=== PATIENT | female | born 1965 | race Caucasian/White ===

== ENCOUNTER → 2016-06-08 | Outpatient (CLI) | payer BC ==
[2015-06-26 13:50] VITALS: BP 111/72; PULSE 92
[~2016-06-08] MED LIST: MULT-506 PO
[2016-06-08 13:14] VITALS: BP 107/70; PULSE 76; TEMP 36.7; O2SAT 97
--- NOTE | 2016-06-08 14:29 | Radiation Oncology Follow-Up ---
Radiation Oncology Follow-Up Date of Visit Jun 08, 2016. Reason For Visit Annual follow-up Radiation Completion Date 11/15/13 Diagnosis (1) Cervical carcinoma Status: Resolved Onset Date: 07/10/2013 Stage: lll (B) Permanent Comment: Abnormal Pap smear 05/21/2013 Status post colposcopy and endometrial biopsy as well as cervical biopsies 07/10 revealing squamous cell carcinoma of the endocervix Status post robotic-assisted total laparoscopic radical hysterectomy with upper vaginectomy, bilateral stopping oophorectomy and bilateral optic lymph node dissection 08/24/2013 staged pT2a pNI M0 Status post completion of radiation therapy combined with chemotherapy Radiation completed 11/15/2013 received 6240 cGy Last Edited By: Tana Pa on Jun 26, 2015 15:55 History of Present Illness This is a 48-year-old white female who had a routine Pap smear 05/21/2013. This was abnormal and showed atypical squamous cells of undetermined significance. Cannot exclude squamous lesion with endocervical involvement. Specimen [id number]. she then had a colposcopy with endometrial biopsy and cervical biopsies 03/2014. 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 Cervical biopsy at 6:00 position showed poorly differentiated nonkeratinizing squamous cell carcinoma. Cervical biopsy at 12:00 position showed poorly differentiated nonkeratinizing squamous cell carcinoma. Specimen #[id number]. She was then seen by Dr. Kim. She had a PET scan 2013 which showed no evidence of pathologic adenopathy or distant metastatic disease. On 08/24/2013 she had a robotic-assisted total laparoscopic type 3 Wer[place]im radical hysterectomy with upper vaginectomy, bilateral salpingo-oophorectomy and bilateral pelvic lymph node dissection. The path report revealed a tumor size of 3 x 1.5 cm. Stromal invasion was 5-6 mm with horizontal extent of 3 cm. All margins are negative for carcinoma with the distance from the closest margin at the radial cuff margin of 5 mm. No vascular invasion. Staging was pT2a 1 N1. There were 30 lymph nodes removed and one was positive at the right pelvic lymph node resection. She was treated with combined radiation and chemotherapy. Status post completion of radiation therapy 11/15/2013 received 6240 cGy Interim History She's been doing well over this past year. She denies any change in urination or bowel habits. She is sexually active. She therefore does not require use of the vaginal dilator. Occasional bleeding post coitus. She continues to see Dr. Kim in February and will see him or his nurse practitioner again in August. A Pap smear was performed at the last visit. She stated that this was reported as low in cellularity and will be repeated in August. She's had no problems with abdominal discomfort. She has noted some vaginal dryness. She was prescribed Premarin cream at her last gynecologic oncology visit. She does not appear that she is using this and is not on her medication list. She has noted some mild swelling of her ankles at the end of the day. This resolves overnight. There is no persistent swelling. She has no pain of her legs or calf tenderness. Allergies Coded Allergies: Codeine (Verified Allergy, Mild, 07/04/09) PATIENT TOOK CODEINE AND HAD SWELLING IN LIVER, MAY NOT HAVE BEEN CODEINE BUT PREFERS NOT TO TAKE Home Medications Scheduled Multivitamin (Multivitamin), 1 TAB PO DAILY Review of Systems Gastrointestinal: Symptoms: WNL GI Comments: No fiber supplements; Oral: Symptoms: No Problems Respiratory: Symptoms: WNL Urinary: Symptoms: WNL Skin: Symptoms: No Problems Physical Exam Vital Signs Date Time Temp Pulse Resp B/P Pulse Ox O2 Delivery O2 Flow Rate FiO2 06/08/16 13:14 36.7 76 12 107/70 97 Pain: Pain Location: None Patient Pain Scale: 0 - 10 Initial Pain Intensity: 0.0 Fatigue: None General Appearance: no apparent distress Eyes: normal inspection, EOMI ENT: normal ENT inspection, hearing grossly normal Respiratory/Chest: lungs clear, no respiratory distress, no accessory muscle use Cardiovascular: regular rate, rhythm, no gallop, no murmur Abdomen: non tender, soft, no organomegaly Genitourinary - Female: Normal external genitalia. She has foreshortening the vagina. There are no visible or palpable lesions of the vagina. There is no vaginal discharge. 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 No masses on bimanual examination. No tenderness. Anal / Rectum: Normal sphincter tone. No rectal masses no rectal bleeding. Extremities: normal range of motion, no pedal edema, + pertinent finding (mild varicosities) Neurologic/Psychiatric: no motor/sensory deficits, alert, normal mood/affect Skin: warm/dry Lymphatic: no adenopathy Assessment & Plan Plan: Continue regular follow-up with gynecologic oncology. She has visits at twice a year. She is sexually active and does not need to use the vaginal dilator. We did discuss vaginal dryness. The mild bleeding was likely due to her telangiectasis. I recommended that she use [id number] Replens. She could also use Aquaphor once or twice a week. She can discuss use of the Premarin cream further with gynecologic oncology. The swelling of the ankles is very likely due to mild venous insufficiency. We asked her to return to our office in 1 year. She may call if she has any questions or concerns in the interim. Total Time In Follow-Up I spent 20 minutes speaking to the patient performing examination. I spent 15 minutes reviewing information in completing this note. Copy To Sincere Dickey M.D.; Arnaud Kim D.O.
== END | disposition home or self-care (01) ==
LOC: C.ONC 13:08
PROVIDERS: ATTEND Radiology Radiation Oncology
DX: Z08 Encounter for follow-up examination after completed treatment for malignant neoplasm (principal); Z92.3 Personal history of irradiation; Z85.41 Personal history of malignant neoplasm of cervix uteri

== ENCOUNTER → 2017-04-19 | Outpatient (CLI) | payer BC ==
--- NOTE | 2017-04-22 08:12 | MAMMOGRAPHY REPORT ---
BILATERAL DIGITAL SCREENING MAMMOGRAM TOMOSYNTHESIS WITH CAD: 04/19/2017 CLINICAL HISTORY: Routine screening. Patient has no complaints. TECHNIQUE: Breast tomosynthesis in addition to standard 2D mammography was performed. Current study was also evaluated with a Computer Aided Detection (CAD) system. COMPARISON: Comparison is made to exam dated: 01/13/2009. BREAST COMPOSITION: The tissue of both breasts is extremely dense, which lowers the sensitivity of m ammography. FINDINGS: No suspicious masses, calcifications, or areas of architectural distortion are noted in ei ther breast. There has been no significant interval change compared to prior exams. IMPRESSION: ACR BI-RADS CATEGORY 1: NEGATIVE There is no mammographic evidence of malignancy. A 1 year screening mammogram is recommended. The pa tient will receive written notification of the results. Approximately 10% of breast cancers are not detected with mammography. A negative mammographic report should not delay biopsy if a clinically suggestive mass is present. Aletha Marin M.D. ah/:04/19/2017 15:33:00 [employer]: Dona JONESR, M, [facility] letter sent: Normal 1/2 BI-RADS Code: ACR BI-RADS Category 1: Negative
== END | disposition home or self-care (01) ==
LOC: C.MAMM 14:16
PROVIDERS: ATTEND Nurse Practitioner
DX: Z12.31 Encounter for screening mammogram for malignant neoplasm of breast (principal)

== ENCOUNTER → 2017-06-07 | Outpatient (CLI) | payer BC ==
[2017-06-07 13:07] VITALS: BP 96/68; PULSE 71; TEMP 36.5; O2SAT 99
--- NOTE | 2017-06-07 13:53 | Radiation Oncology Follow-Up ---
Radiation Oncology Follow-Up Date of Visit Jun 07, 2017. Reason For Visit Annual follow up Radiation Completion Date finished 11-15-2013 Diagnosis (1) Cervical carcinoma Status: Resolved Onset Date: 07/10/2013 Stage: lll (B) Permanent Comment: Abnormal Pap smear 05/21/2013 Status post colposcopy and endometrial biopsy as well as cervical biopsies 07/10 revealing squamous cell carcinoma of the endocervix Status post robotic-assisted total laparoscopic radical hysterectomy with upper vaginectomy, bilateral stopping oophorectomy and bilateral optic lymph node dissection 08/24/2013 staged pT2a pNI M0 Status post completion of radiation therapy combined with chemotherapy Radiation completed 11/15/2013 received 6240 cGy Last Edited By: Tana Pa on Jun 26, 2015 15:55 Interim History She's been doing well over this past year. She denies any vaginal discharge or bleeding. She has had no pelvic pain. There's been no change in urination or bowel habits. Pap smears are done regularly at Dr. Kim's office. Last year we discussed vaginal dryness. She is using a water-based lubricant. She had been given a prescription for Premarin cream. She had concerns about using the cream and therefore did not use the Premarin cream. Allergies Coded Allergies: Codeine (Verified Allergy, Mild, 07/04/09) PATIENT TOOK CODEINE AND HAD SWELLING IN LIVER, MAY NOT HAVE BEEN CODEINE BUT PREFERS NOT TO TAKE Home Medications Scheduled Multivitamin (Multivitamin), 1 TAB PO DAILY Review of Systems Gastrointestinal: Symptoms: WNL GI Comments: No fiber supplements; Oral: Symptoms: No Problems Respiratory: Symptoms: WNL Urinary: Symptoms: WNL Skin: Symptoms: No Problems Physical Exam Vital Signs Date Time Temp Pulse Resp B/P (MAP) Pulse Ox O2 Delivery O2 Flow Rate FiO2 06/07/17 13:07 36.5 71 16 96/68 99 Fatigue: None General Appearance: no apparent distress Eyes: normal inspection, EOMI ENT: normal ENT inspection, hearing grossly normal Respiratory/Chest: lungs clear, no respiratory distress, no accessory muscle use Cardiovascular: regular rate, rhythm, no gallop, no murmur Abdomen: non tender, soft, no organomegaly Genitourinary - Female: external genitalia normal, + pertinent finding (there is foreshortening of the vagina. There is mild telangiectasia at the apex. There are no visible or palpable lesions of the vagina. There are no masses on bimanual examination.) Anal / Rectum: Normal sphincter tone. No rectal masses no rectal bleeding. Extremities: no pedal edema Neurologic/Psychiatric: no motor/sensory deficits, alert, normal mood/affect Pain Management Patient Reports Pain: No Side: Bilateral Patient Preferred Pain Scale: 0 - 10 Initial Pain Intensity: 0.0 Pain Management Plan She denied pain therefore requires no pain management. Laboratory Laboratory Results: not applicable Pathology Pathology Results: not applicable Imaging Imaging Studies: not applicable Assessment & Plan Plan: Continue regular follow-up with her primary care physician as well as gynecologic oncologist. We asked her to return to our office in one year she may call if she has any questions or concerns. She'll continue to use the water base lubricant. She does not plan to use Premarin cream. Last year he discussed mild ankle edema. This is likely due to venous insufficiency. She has varicosities. She is going to try wearing support hose Total Time In Follow-Up I spent 20 minutes speaking to the patient and performing examination. I spent 15 minutes reviewing information in completing this note. Copy To Sincere Dickey M.D.; Arnaud Kim D.O.
== END | disposition home or self-care (01) ==
LOC: C.ONC 12:51
PROVIDERS: ATTEND Physician Assistant Medical
DX: Z08 Encounter for follow-up examination after completed treatment for malignant neoplasm (principal); Z92.3 Personal history of irradiation; Z85.41 Personal history of malignant neoplasm of cervix uteri